=== PATIENT | female | born 1955 | race Caucasian/White ===

== ENCOUNTER → 2016-10-10 | Outpatient (CLI) | payer OTHER ==
--- NOTE | 2016-10-11 12:54 | MM ---
Reason for exam: screening (asymptomatic). Last mammogram was performed 3 years and 7 months ago. History: Patient is postmenopausal. Physical Findings: A clinical breast exam by your physician is recommended on an annual basis and results should be correlated with mammographic findings. MG Screening Mammo w CAD Bilateral CC and MLO view(s) were taken. Prior study comparison: March 14, 2013, bilateral digital screening mammo w/CAD. November 29, 2010, mammogram, performed at [facility]. There are scattered fibroglandular densities. No significant changes when compared with prior studies. ASSESSMENT: Negative, BI-RAD 1 RECOMMENDATION: Routine screening mammogram of both breasts in 1 year.
== END | disposition home or self-care (01) ==
LOC: RADMAMWWP 16:08
PROVIDERS: ATTEND Obstetrics & Gynecology
DX: Z12.31 Encounter for screening mammogram for malignant neoplasm of breast (principal)

== ENCOUNTER → 2018-09-05 | Outpatient (CLI) | payer BC ==
--- NOTE | 2018-09-06 14:14 | MM ---
Reason for exam: screening (asymptomatic). Last mammogram was performed 1 year and 11 months ago. History: Patient is postmenopausal. Physical Findings: A clinical breast exam by your physician is recommended on an annual basis and results should be correlated with mammographic findings. MG 3D Screening Mammo W/Cad Bilateral CC and MLO view(s) were taken. Prior study comparison: October 10, 2016, bilateral MG screening mammo w CAD. March 14, 2013, bilateral digital screening mammo w/CAD. There are scattered fibroglandular densities. There is no discrete abnormality. ASSESSMENT: Negative, BI-RAD 1 RECOMMENDATION: Routine screening mammogram of both breasts in 1 year.
== END | disposition home or self-care (01) ==
LOC: RADMAMWWP 09:09
PROVIDERS: ATTEND Obstetrics & Gynecology
DX: Z12.31 Encounter for screening mammogram for malignant neoplasm of breast (principal)
CPT/HCPCS: 77063; 77067

== ENCOUNTER → 2021-04-25 | Outpatient (CLI) | payer BC ==
--- NOTE | 2021-04-26 14:33 | MM ---
Reason for exam: screening (asymptomatic). Last mammogram was performed 2 years and 8 months ago. History: Patient is postmenopausal. Physical Findings: A clinical breast exam by your physician is recommended on an annual basis and results should be correlated with mammographic findings. MG 3D Screening Mammo W/Cad Bilateral CC and MLO view(s) were taken. Prior study comparison: September 05, 2018, bilateral MG 3d screening mammo w/cad. October 10, 2016, bilateral MG screening mammo w CAD. There are scattered fibroglandular densities. No significant changes when compared with prior studies. ASSESSMENT: Negative, BI-RAD 1 RECOMMENDATION: Routine screening mammogram of both breasts in 1 year.
== END | disposition home or self-care (01) ==
LOC: RADMAMWWP 07:38
PROVIDERS: ATTEND Obstetrics & Gynecology
DX: Z12.31 Encounter for screening mammogram for malignant neoplasm of breast (principal)
CPT/HCPCS: 77063; 77067